=== PATIENT | male | born 1940 | race Hispanic/Latino ===

== ENCOUNTER 2020-06-01 16:00 | Outpatient (RCR) | payer MEDICARE | END 2020-06-10 | LOC: PT 16:00 | PROVIDERS: ATTEND Specialist | DX: M17.0 Bilateral primary osteoarthritis of knee (principal) ==

== ENCOUNTER 2020-07-07 14:51 | Outpatient (RCR) | payer MEDICARE | END 2020-07-11 | LOC: PT 14:51 | PROVIDERS: ATTEND Specialist | DX: M17.0 Bilateral primary osteoarthritis of knee (principal); M25.562 Pain in left knee; M25.561 Pain in right knee; R26.89 Other abnormalities of gait and mobility; M62.81 Muscle weakness (generalized) | CPT/HCPCS: 97139 ==

== ENCOUNTER 2020-08-04 13:53 | Outpatient (RCR) | payer MEDICARE | END 2020-08-08 | LOC: PT 13:53 | PROVIDERS: ATTEND Specialist | DX: M17.0 Bilateral primary osteoarthritis of knee (principal); R26.89 Other abnormalities of gait and mobility; M62.81 Muscle weakness (generalized); M25.561 Pain in right knee; M25.562 Pain in left knee | CPT/HCPCS: 97139 ==